=== PATIENT | female | born 1995 | race Caucasian/White ===

== ENCOUNTER 2016-05-31 16:52 | Emergency (ER) | payer BC ==
[2016-05-31 18:02] VITALS: BP 114/65
--- NOTE | 2016-05-31 18:43 | UC ---
Complaint Female HPI - HPI Summary HPI Summary: 20 y/o female complaining of "a painless mass in the vaginal area," increased clear watery vaginal discharge x 2 weeks, spotting before her menstrual cycle x 2 months. Patient is not on control, her and her are trying to get . Reports nocturia and urinary frequency even though she has not increased her fluid intake; feeling nauseated. Denies lower abdominal pain, fever like symptoms, or a change in new sexual partners. - History Of Current Complaint Chief Complaint: UCGU Stated Complaint: PERSONAL Time Seen by Provider: 05/31/16 18:33 Hx Obtained From: Patient Hx Last Menstrual Period: 05/07/16 ?: No Onset/Duration: Gradual Onset Timing: Constant Associated Signs And Symptoms: Positive: Vaginal Bleeding/Discharge - Spotting before her menstraul cycle x 2 months, Vaginal Discharge - Thin clear watery discharge. Negative: Fever, Back Pain Related Hx: - [id number] - Risk Factors Ectopic Risk Factor: Negative Ovarian Torsion Risk Factor: Negative - Allergies/Home Medications Allergies/Adverse Reactions: Allergies Allergy/AdvReac Type Severity Reaction Status Date / Time Sulfamethoxazole Allergy Severe throat Verified 08/29/15 20:21 w/Trimethoprim swelling [From Bactrim] excedrin migraine Allergy Intermediate Rash Uncoded 05/31/16 18:02 Home Medications: Home Medications Citalopram TAB* [CeleXA TAB*] 60 mg PO DAILY 05/31/16 [History Confirmed ] PMH/Surg Hx/FS Hx/Imm Hx Previously Healthy: Yes Endocrine History Of: Denies: Diabetes, Thyroid Disease, Hyperthyroidism, Hypothyroidism, Dyslipidemia Cardiovascular History Of: Denies: Cardiac Disorders, Hypertension, Pacemaker/ICD, Myocardial Infarction , Congestive Heart Failure, Atrial Fibrillation, Deep Vein Thrombosis, Bleeding Disorders Respiratory History Of: Reports: Asthma GI/ History Of: Reports: Renal Disease - She has had a history of kidney stones in the past. Denies: Gastroesophageal Reflux, Ulcer, Gastrointestinal Bleed, Gall Bladder Disease, Kidney Stones, Diverticulitis, Urosepsis Neurological History Of: Denies: TIA, CVA, Dementia, Seizures, Migraine Psychological History Of: Denies: Anxiety, Depression, Bipolar Disorder, Schizophrenia, Post Traumatic Stress Disorder Cancer History Of: Denies: Lung Cancer, Colorectal Cancer, Breast Cancer, Prostate Cancer, Cervical Cancer - Surgical History Surgical History: Yes Surgery Procedure, Year, and Place: I & D right lower leg 04/2014 - Family History Known Family History: Positive: None - Social History Lives: With Family Alcohol Use: Occasionally Substance Use Type: None Smoking Status (MU): Never Smoked Tobacco Have You Smoked in the Last Year: No - Immunization History Most Recent Influenza Vaccination: no Review of Systems Constitutional: Negative Skin: Negative Eyes: Negative ENT: Negative Respiratory: Negative Cardiovascular: Negative Gastrointestinal: Other - Feelign nauseated Genitourinary: Frequency, Other - Nocturia Motor: Negative Neurovascular: Negative Musculoskeletal: Negative Neurological: Negative Psychological: Negative All Other Systems Reviewed And Are Negative: Yes Physical Exam Triage Information Reviewed: Yes Appearance: Well-Appearing, No Pain Distress Vital Signs: Initial Vital Signs Temp 98.3 F 05/31/16 17:55 Pulse 67 05/31/16 17:55 Resp 14 05/31/16 17:55 BP 114/65 05/31/16 17:55 Pulse Ox 100 05/31/16 17:55 Vital Signs Reviewed: Yes Eye Exam: Normal Eyes: Positive: Conjunctiva Clear ENT Exam: Normal Dental Exam: Normal Neck exam: Normal Neck: Positive: Supple, Nontender, No Lymphadenopathy Respiratory Exam: Normal Respiratory: Positive: Chest non-tender, Lungs clear, Normal breath sounds, No respiratory distress Cardiovascular: Positive: RRR, No Murmur, Pulses Normal Abdomen Description: Positive: Nontender, No Organomegaly, Soft. Negative: CVA Tenderness (R), CVA Tenderness (L), Distended, Guarding Bowel Sounds: Positive: Present Musculoskeletal Exam: Normal Musculoskeletal: Positive: Strength Intact, ROM Intact, No Edema Neurological Exam: Normal Neurological: Positive: Alert, Muscle Tone Normal Psychological Exam: Normal Skin Exam: Normal - Additional Comments Inflamed tender flesh colored mass superior to the vaginal opening, inferior to the urethra. Patient had a difficult time tolerating the small speculum, thin clear watery discharge from the cervical os, cervix is pink and smooth, located to the right. Complaint Female Dx - Differential Dx/Diagnosis Provider Diagnoses: vulvovaginitis. vulvar nodule Discharge - Discharge Plan Condition: Stable Disposition: HOME Patient Education Materials: Vaginitis (ED) Referrals: Non Staff,Doctor [Primary Care Provider] - If Needed Lucie Collins MD [Medical Doctor] - Additional Instructions: If symptoms persists seek OBGYN evaluation.
== END 2016-05-31 19:51 | disposition home or self-care (01) ==
LOC: UCCORT 16:52
DX: N76.0 Acute vaginitis (principal); Z88.2 Allergy status to sulfonamides; Z32.02 Encounter for pregnancy test, result negative
CPT/HCPCS: 81025; 87480; 87491; 87510; 87591; 87660; 99212; G0463

== ENCOUNTER 2018-03-17 12:58 | Emergency (ER) | payer BC ==
[2018-03-17 13:18] VITALS: BP 121/57
[2018-03-17] MEDS ORDERED: Phenazopyridine TAB* 100 MG PO ONE (13:23)
[2018-03-17] MEDS ORDERED: Ciprofloxacin TAB* 500 MG PO ONE (13:23)
--- NOTE | 2018-03-17 13:30 | UC ---
Complaint Female HPI - HPI Summary HPI Summary: dysuria x 4 days + urinary frequency , urgency x 4 days no fever, no chills, no flank pain - History Of Current Complaint Chief Complaint: UCGU Stated Complaint: URINARY COMPLAINT Time Seen by Provider: 03/17/18 13:12 Hx Obtained From: Patient Hx Last Menstrual Period: ~02/24/18 ?: No Onset/Duration: Gradual Onset, Lasting Days - 4, Still Present Timing: Constant Severity Initially: Moderate Severity Currently: Moderate Pain Intensity: 8 Character: Burning Aggravating Factor(s): Urination Alleviating Factor(s): Nothing Associated Signs And Symptoms: Negative: Fever, Back Pain, Vaginal Bleeding/ Discharge, Vaginal Discharge, Nausea, Vomiting(# Of Episodes =), Genital Swelling, Genital Blisters, Retained Foregin Body (Specify) - Allergies/Home Medications Allergies/Adverse Reactions: Allergies Allergy/AdvReac Type Severity Reaction Status Date / Time sulfamethoxazole Allergy Anaphylatic Verified 03/17/18 13:11 [From Bactrim] Shock trimethoprim [From Bactrim] Allergy Anaphylatic Verified 03/17/18 13:11 Shock Home Medications: Home Medications DOXYcycline CAP(*) [DOXYcycline 100MG CAP(*)] 100 mg PO BID 03/17/18 [History Confirmed 03/17/18] PARoxetine HCL TAB* [Paxil TAB*] 10 mg PO DAILY 03/17/18 [History Confirmed ] Phenazopyridine TAB* [Pyridium 100 mg TAB*] 200 - 300 mdi PO TID PRN 03/17/18 [ History Confirmed 03/17/18] Propranolol TAB* [Inderal TAB*] 20 mg PO BID 03/17/18 [History Confirmed ] PMH/Surg Hx/FS Hx/Imm Hx Previously Healthy: Yes - Surgical History Surgical History: Yes Surgery Procedure, Year, and Place: Left Lower Oral Surgery, 2017, [place]; Left Leg Open Wound Revision, 2013, [place] - Family History Known Family History: Positive: None Negative: Diabetes - Social History Alcohol Use: Daily Substance Use Type: None Smoking Status (MU): Never Smoked Tobacco Have You Smoked in the Last Year: No - Immunization History Most Recent Influenza Vaccination: no Review of Systems All Other Systems Reviewed And Are Negative: Yes Constitutional: Positive: Negative Skin: Positive: Negative Eyes: Positive: Negative ENT: Positive: Negative Respiratory: Positive: Negative Genitourinary: Positive: Dysuria, Frequency, Urgency Is Patient Immunocompromised?: No Physical Exam Triage Information Reviewed: Yes Appearance: Well-Appearing, No Pain Distress, Well-Nourished Vital Signs: Initial Vital Signs Temp 98.5 F 03/17/18 13:09 Pulse 80 03/17/18 13:09 Resp 14 03/17/18 13:09 BP 121/57 03/17/18 13:09 Pulse Ox 97 03/17/18 13:09 Vital Signs Reviewed: Yes Eye Exam: Normal Eyes: Positive: Conjunctiva Clear ENT: Positive: Normal ENT inspection Neck exam: Normal Neck: Positive: Supple, Nontender Respiratory: Positive: Chest non-tender, Lungs clear, Normal breath sounds Cardiovascular: Positive: RRR, No Murmur, Pulses Normal Abdomen Description: Positive: Nontender, Soft. Negative: CVA Tenderness (R), CVA Tenderness (L), Distended, Guarding Bowel Sounds: Positive: Present Complaint Female Dx - Differential Dx/Diagnosis Provider Diagnosis: UTI (urinary tract infection) Discharge - Sign-Out/Discharge Documenting (check all that apply): Patient Departure All imaging exams completed and their final reports reviewed: No Studies - Discharge Plan Condition: Stable Disposition: HOME Prescriptions: Ciprofloxacin TAB* [Cipro 500 MG TAB*] 500 mg PO BID #10 tab Phenazopyridine 200 mg (NF) [Pyridium 200 MG tab *] 200 mg PO TID #6 tab Patient Education Materials: Urinary Tract Infection in Women (ED) Referrals: No Primary Care Phys,NOPCP [Primary Care Provider] - If Needed - Billing Disposition and Condition Condition: STABLE Disposition: Home
== END 2018-03-17 13:33 | disposition home or self-care (01) ==
LOC: UCCORT 12:58
DX: N39.0 Urinary tract infection, site not specified (principal); Z88.1 Allergy status to other antibiotic agents
CPT/HCPCS: 81003; 87086; 99212; A9270-GY; G0463

== ENCOUNTER 2018-10-16 18:20 | Emergency (ER) | payer BC, OTHER ==
[2018-10-16 18:47] VITALS: BP 112/63
[2018-10-16] MEDS ORDERED: Cephalexin CAP* 500 MG PO ONE (19:07)
--- NOTE | 2018-10-16 19:08 | UC ---
UC General HPI - HPI Summary HPI Summary: pt is c/o bladder pressure, burning with urination and hesitancy since this an. hx uti's and this feels the same. no fever, abdominal pain or concern for pelvic infection. pt had an external urethral mass and uterine mass removed [address] craft. - History of Current Complaint Chief Complaint: UCGU Stated Complaint: URINARY COMPLAINT Time Seen by Provider: 10/16/18 18:40 Hx Obtained From: Patient Hx Last Menstrual Period: "2 weeks ago" Onset/Duration: Gradual Onset Timing: Constant Pain Intensity: 6 - Allergy/Home Medications Allergies/Adverse Reactions: Allergies Allergy/AdvReac Type Severity Reaction Status Date / Time sulfamethoxazole Allergy Anaphylatic Verified 10/16/18 18:41 [From Bactrim] Shock trimethoprim [From Bactrim] Allergy Anaphylatic Verified 10/16/18 18:41 Shock PMH/Surg Hx/FS Hx/Imm Hx - Additional Past Medical History Additional PMH: uti's - Surgical History Surgical History: Yes Surgery Procedure, Year, and Place: Left Lower Oral Surgery, 2018, [place]; Left Leg Open Wound Revision, 2013, [place]. Hysteroscopy and mass removed outside urethra, September 2018 - Family History Known Family History: Positive: None Negative: Diabetes - Social History Alcohol Use: Occasionally Substance Use Type: None Smoking Status (MU): Never Smoked Tobacco Have You Smoked in the Last Year: No - Immunization History Most Recent Influenza Vaccination: no Review of Systems All Other Systems Reviewed And Are Negative: No Constitutional: Negative: Fever, Chills Gastrointestinal: Negative: Abdominal Pain Genitourinary: Positive: Dysuria, Urgency. Negative: Hematuria, Vaginal/Penile Discharge Physical Exam Triage Information Reviewed: Yes Appearance: Well-Appearing Vital Signs: Initial Vital Signs Temp 98.4 F 10/16/18 18:41 Pulse 61 10/16/18 18:41 Resp 16 10/16/18 18:41 BP 112/63 10/16/18 18:41 Pulse Ox 100 10/16/18 18:41 Vital Signs Reviewed: Yes Eyes: Positive: Conjunctiva Clear Neck: Positive: Supple Respiratory: Positive: Lungs clear Cardiovascular: Positive: RRR Abdomen Description: Positive: Nontender, No Organomegaly, Soft. Negative: CVA Tenderness (R), CVA Tenderness (L) Bowel Sounds: Positive: Present Musculoskeletal: Positive: ROM Intact Neurological: Positive: Alert Psychological: Positive: Age Appropriate Behavior Skin Exam: Normal Diagnostics - Laboratory Lab Results: ua/ + protein, blood, leukocytes, nitrites, ketones, bilirubin with culture pending. Course/Dx - Diagnoses Provider Diagnosis: UTI (urinary tract infection) Discharge - Sign-Out/Discharge Documenting (check all that apply): Patient Departure All imaging exams completed and their final reports reviewed: No Studies - Discharge Plan Condition: Stable Disposition: HOME Prescriptions: Cephalexin CAP* [Keflex CAP*] 500 mg PO BID 7 Days #14 cap Patient Education Materials: Urinary Tract Infection in Women (DC) Referrals: Annabel Craft MD [Primary Care Provider] - 7 Days - Billing Disposition and Condition Condition: STABLE Disposition: Home
== END 2018-10-16 19:18 | disposition home or self-care (01) ==
LOC: UCCORT 18:20
DX: N39.0 Urinary tract infection, site not specified (principal); Z87.440 Personal history of urinary (tract) infections; Z88.1 Allergy status to other antibiotic agents
CPT/HCPCS: 81003; 87077; 87086; 87186; 99212; A9270-GY; G0463